=== PATIENT | female | born 1950 | race Caucasian/White ===

== ENCOUNTER 2019-06-08 06:09 | Day surgery (SDC) | payer MEDICARE, OTHER ==
--- NOTE | 2019-06-06 13:51 | HP ---
DATE OF SURGERY: 06/08/2019 ANTICIPATED PROCEDURE: Colonoscopy. HISTORY OF PRESENT ILLNESS: A 68 year-old presents for screening. She has had a hysterectomy. She does have positive Cologuard. She has had an anal fissure. PAST MEDICAL HISTORY: ALLERGIES: DUST. POLLEN. MEDICATIONS: Lisinopril, levothyroxine, Celebrex. Xanax. PAST SURGICAL HISTORY: Two cervical spine surgeries. Two lower spine surgeries. Hysterectomy. SOCIAL HISTORY: Negative. FAMILY HISTORY: Negative. REVIEW OF SYSTEMS: Hypertension. PHYSICAL EXAMINATION: VITAL SIGNS: Normal. CHEST: Clear. COR: Regular. IMPRESSION: Positive Cologuard, anal fissure. PLAN: Colonoscopy.
[2019-06-08] MEDS ORDERED: Lactated Ringers 1,000 ML IV SCH (06:30)
[2019-06-08] MEDS ORDERED: DIPRIVAN 200 MG/20 ML IV ONE ×2 (07:59→08:38)
[2019-06-08] MEDS ORDERED: Ketamine HCl 50 MG/ML ONE (08:01)
[2019-06-08 09:49] VITALS: BP 106/64; PULSE 104; O2SAT 95
--- NOTE | 2019-06-08 10:54 | OP ---
SURGERY DATE/TIME: 06/08/2019 0825 PREOPERATIVE DIAGNOSES: 1) Positive Cologuard. 2) Recent history of fissure. POSTOPERATIVE DIAGNOSES: 1) Small anorectal polyp 5 mm. 2) There was no fissure today. 3) There were mild hemorrhoids. PROCEDURE: Colonoscopy complete to cecum. PREP SCORE: Satisfactory. WITHDRAWL TIME: Satisfactory. SURGEON: Erwin Madden M.D. ANESTHESIA: MAC. FINDINGS: Polyps anorectal submitted. INDICATION: The patient had positive Cologuard. She has had some rectal tenderness, pain and bleeding. DESCRIPTION OF PROCEDURE: She was taken to endoscopy. Left lateral decubitus position. Anal digital examination satisfactory. She has a few anorectal tags. Scope advanced to the cecum, base of cecum, ileocecal valve, ascending, hepatic, transverse, splenic, descending, sigmoid, rectum. Rectal-anal junction there was a 5 mm polyp taken with hot biopsy forceps. Line Assembler sample submitted. There was no fissure today. There were mild hemorrhoids. Patient tolerated the procedure satisfactorily. ANTICIPATED FOLLOW UP: Five years.
== END 2019-06-08 09:57 | disposition home or self-care (01) ==
LOC: SDC 06:09
PROVIDERS: ATTEND Surgery
DX: Z12.11 Encounter for screening for malignant neoplasm of colon (principal); R19.5 Other fecal abnormalities; K64.9 Unspecified hemorrhoids; K62.1 Rectal polyp; I10 Essential (primary) hypertension; Z79.899 Other long term (current) drug therapy; Z87.19 Personal history of other diseases of the digestive system
CPT/HCPCS: 88305; J2704

== ENCOUNTER 2022-01-02 16:27 | Emergency (ER) | payer MEDICARE, OTHER ==
--- NOTE | 2022-01-02 16:30 | ERPHSYRPT ---
- History of Present Illness Time Seen by Provider: 01/02/22 16:45 Source: patient Exam Limitations: no limitations Physician History: This is a 71-year-old white female who underwent an echocardiogram and there is a question of whether or not there was a pulmonary embolus present. Therefore, Dr. Lg Brooks, the patient's primary care physician, contacted me and told me the patient would be coming into the emergency department for evaluation. Patient does not have any significant shortness of breath or chest pain. However the above findings prompts the need for CTA of the chest. Patient has no renal abnormalities. She is not allergic to intravenous contrast/dye. Patient has a history of hypertension and hypothyroidism. Severity: mild Associated Symptoms: denies symptoms, No shortness of breath, No chest pain Allergies/Adverse Reactions: NKA Allergy (Verified 01/02/22 16:38) pollen extracts Allergy (Verified 01/02/22 16:38) Home Medications: Celecoxib [Celebrex] 200 mg PO DAILY 10/13/11 [History] Fluoxetine HCl 20 mg [Prozac 20 MG] 2 tab PO DAILY 05/24/19 [History] Levothyroxine Sodium 88 Mcg [Synthroid 88 Mcg] 1 tab PO DAILY 05/24/19 [History] Lisinopril/Hydrochlorothiazide [Lisinopril-Hctz 20-12.5 mg Tab] 1 tab PO DAILY 05/24/19 [History] Montelukast Sodium 10 mg [Singulair 10 MG] 1 tab PO DAILY 05/24/19 [History] Travel Risk - International Travel Have you traveled outside of the country in past 3 weeks: No - Coronavirus Screening Are you exhibiting any of the following symptoms?: No Close contact with a COVID-19 positive Pt in past 14-21 Days: No - Review of Systems Constitutional: No Symptoms Eyes: No Symptoms Ears, Nose, & Throat: No Symptoms Respiratory: No Symptoms Cardiac: No Symptoms Abdominal/Gastrointestinal: No Symptoms Genitourinary Symptoms: No Symptoms Musculoskeletal: No Symptoms Skin: No Symptoms Neurological: No Symptoms Psychological: No Symptoms Endocrine: No Symptoms Hematologic/Lymphatic: No Symptoms Immunological/Allergic: No Symptoms All Other Systems: Reviewed and Negative - Past Medical History Pertinent Past Medical History: Yes Neurological History: No Pertinent History ENT History: No Pertinent History Cardiac History: Hypertension Respiratory History: No Pertinent History Endocrine Medical History: No Pertinent History Musculoskeletal History: Other GI Medical History: No Pertinent History History: No Pertinent History Psycho-Social History: Depression Female Reproductive Disorders: No Pertinent History Other Medical History: hx of rectal bleeding,neck and back pain,anemia several blood transfusion, last blood transfusion 5years ago, anal fissure with freq bleeding - Past Surgical History Past Surgical History: Yes Neuro Surgical History: No Pertinent History Cardiac: No Pertinent History Respiratory: No Pertinent History Gastrointestinal: No Pertinent History Genitourinary: No Pertinent History Musculoskeletal: Orthopedic Surgery Female Surgical History: Hysterectomy, Dilation & Curettage, Section, Other Other Surgical History: 2 cervical neck spinal surgeries. 2 lower spinal surgeries,ovary and tube removed,colonoscopy,pain [id number] - Social History Smoking Status: Never smoker Exposure to second hand smoke: No Drug Use: none - Nursing Vital Signs Nursing Vital Signs: Initial Vital Signs Temperature 97.3 F 01/02/22 16:39 Pulse Rate 88 01/02/22 16:39 Respiratory Rate 18 01/02/22 16:39 Blood Pressure 157/56 01/02/22 16:39 O2 Sat by Pulse Oximetry 96 01/02/22 16:39 Pain Scale Pain Intensity 0 - Physical Exam General Appearance: no apparent distress, alert Eye Exam: PERRL/EOMI, eyes nml inspection Ears, Nose, Throat Exam: normal ENT inspection, moist mucous membranes Neck Exam: normal inspection, non-tender, supple, full range of motion Respiratory Exam: normal breath sounds, lungs clear, airway intact, No chest tenderness, No respiratory distress Cardiovascular Exam: regular rate/rhythm, normal heart sounds, normal peripheral pulses Gastrointestinal/Abdomen Exam: soft, normal bowel sounds, No tenderness Pelvic Exam: not done Rectal Exam: not done Back Exam: normal inspection, normal range of motion, No CVA tenderness, No vertebral tenderness Extremity Exam: normal inspection, normal range of motion, pelvis stable Neurologic Exam: alert, oriented x 3, cooperative, exchange trouble shooter II-XII nml as tested, normal mood/affect, nml cerebellar function, nml station & gait, sensation nml Skin Exam: normal color, warm, dry Lymphatic Exam: No adenopathy SpO2 Interpretation: normal O2 Delivery: Room Air - Course Nursing assessment & vital signs reviewed: Yes Ordered Tests: Active Orders 24 hr Category Date Time Status IV Insertion STAT Care 01/02/22 16:36 Active CHEST WITH CONTRAST [CT] Stat Exams 01/02/22 16:37 Taken BMP Stat Lab 01/02/22 17:00 Completed TROPONIN Q4H Lab 01/02/22 17:00 Completed TROPONIN Q4H Lab 01/02/22 20:45 Ordered TROPONIN Q4H Lab 01/03/22 00:45 Ordered Medication Summary Discontinued Medications Generic Name Dose Route Start Last Admin Trade Name Monserrat PRN Reason Stop Dose Admin Sodium Chloride 500 mls @ 500 mls/hr 01/02/22 16:37 01/02/22 18:05 Sodium Chloride 0.9% 500 Ml IV 01/02/22 17:36 Infused .Q1H ONE Infusion Sodium Chloride Confirm 01/02/22 17:00 Sodium Chloride 0.9% 500 Ml Administered 01/02/22 17:01 Dose 500 mls @ ud IV .STK-MED ONE Lab/Rad Data: Laboratory Result Diagrams 01/02/22 17:00 Laboratory Results 01/02/22 01/02/22 Range/Units 17:00 17:00 Sodium 137 (137-145) mmol/L Potassium 3.8 (3.5-5.1) mmol/L Chloride 101 (98-107) mmol/L Carbon Dioxide 29 (22-30) mmol/L Anion Gap 10.5 (5-15) MEQ/L BUN 12 (7-17) mg/dL Creatinine 0.80 (0.52-1.04) mg/dL Estimated GFR > 60.0 ML/MIN Glucose 118 H (74-106) mg/dL Calcium 8.4 (8.4-10.2) mg/dL Troponin I < 0.012 (0.000-0.034) ng/mL - Progress Progress: unchanged, re-examined Progress Note: 01/02/22 17:52 The echocardiogram that was performed today was reviewed. There is an echogenic mass in the right atrium adjacent to the intra atrial septum. Suspicious for thrombus versus tumor. This was discussed with Jeramie, the pre sales technical consultant so that he could relay this message to the [employer]/virtual radiologist to read tonight. 01/02/22 18:47 CTA of the chest had limited pulmonary artery contrast without evidence of large central pulmonary emboli. There are no large luminal filling defects demonstrated in the main, right or left pulmonary arteries. There is no evidence of any acute pulmonary disease. Heart examination on this study is unremarkable without cardiomegaly. There is no pericardial effusion. Counseled pt/family regarding: lab results, diagnosis, need for follow-up, rad results - Departure Departure Disposition: Home Clinical Impression: Shortness of breath Condition: Stable Critical Care Time: No Referrals: BONITA ZAMORANO [Primary Care Provider] - Follow up/PCP as directed Additional Instructions: Continue all your medication as prescribed. Follow-up with Dr. Lg Brooks for further evaluation and management.
[2022-01-02] MEDS ORDERED: Sodium Chloride 0.9% 500 ML 500 ML IV ONE ×2 (16:37→17:00)
[2022-01-02 17:25] LABS: ANION GAP 10.5 MEQ/L (5-15); BLOOD UREA NITROGEN 12 mg/dL (7-17); CHLORIDE 101 mmol/L (98-107); Calcium 8.4 mg/dL (8.4-10.2); Carbon Dioxide 29 mmol/L (22-30); EST GLOMERULAR FILTRATION RATE > 60.0 ML/MIN; Glucose 118 mg/dL (74-106); Potassium 3.8 mmol/L (3.5-5.1); SODIUM 137 mmol/L (137-145)
[2022-01-02 18:09] VITALS: PULSE 80; O2SAT 98
[2022-01-02 18:51] VITALS: BP 111/66
--- NOTE | 2022-01-02 22:28 | XRAY ---
Indication: Elevated d-dimer. Multiple contiguous axial images obtained through the chest using 80 cc Isovue 370 contrast and PE protocol. Comparison: None There is adequate opacification of the pulmonary arteries to include the lobar and segmental branches. No pulmonary embolus. Heart is not enlarged. Aorta is normal course and caliber. Small right hilar calcified node. No pathologic mediastinal/hilar lymphadenopathy. Small hiatal hernia. Lungs demonstrate mild bibasilar subsegmental atelectasis/scarring. No suspicious pulmonary mass, infiltrate, effusion, or pneumothorax. Bony thorax intact with osteopenia and mild/moderate degenerative changes throughout the spine. Limited upper abdomen demonstrates mild diffuse fatty liver and 5 cm right renal cyst. Impression: 1. Negative pulmonary embolus. No acute cardiopulmonary abnormalities. 2. Incidental bibasilar subsegmental atelectasis/scarring, small hiatal hernia, fatty liver, right renal cyst, and chronic bony findings. Comment: Preliminary interpretation made by [facility]. No critical discrepancy.
== END 2022-01-02 19:09 | disposition home or self-care (01) ==
LOC: ED 16:27
DX: R06.02 Shortness of breath (principal); R93.1 Abnormal findings on diagnostic imaging of heart and coronary circulation; I10 Essential (primary) hypertension; Z79.899 Other long term (current) drug therapy
CPT/HCPCS: 36000; 36415; 71260; 80048; 84484; 85379; 93005; 99284